=== PATIENT | female | born 1965 | race Caucasian/White ===

== ENCOUNTER 2019-01-06 17:01 | Emergency (ER) | payer MEDICARE, OTHER ==
[~2019-01-06] VITALS: Ht 170.2 cm; Wt 146.1 kg
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
--- NOTE | 2019-01-06 17:24 | NUR ---
CONNOR LOPEZ AT BEDSIDE
[2019-01-06] MEDS ORDERED: IV NS 0.9% 500 ML BAG IV ONE ×2 (17:30→18:30)
[2019-01-06 17:38] LABS: BASOPHILS % (AUTO) 0.3 % (0.0-2.0); EOSINOPHILS % (AUTO) 0.6 % (0.0-6.0); HEMATOCRIT 39 % (33-45); HEMOGLOBIN 13.2 g/dL (11.5-14.8); LYMPHOCYTES # (AUTO) 1.6 /CMM (0.8-4.8); LYMPHOCYTES % (AUTO) 12.8 % (20.0-44.0); MEAN CORPUSCULAR HGB CONC 34 g/dl (31.0-36.0); MEAN CORPUSCULAR VOLUME 88 fL (82-100); MONOCYTES # (AUTO) 0.8 /CMM (0.1-1.30); MONOCYTES % (AUTO) 6.6 % (2.0-12.0); NEUTROPHILS # (AUTO) 9.9 /CMM (1.8-8.9); NEUTROPHILS % (AUTO) 79.7 % (43.0-81.0); PLATELET COUNT (AUTO) 348 /CMM (150-450); RED BLOOD CELL COUNT(AUTO) 4.47 MIL/uL (4.0-5.2); WHITE BLOOD COUNT (AUTO) 12.5 K/uL (4.3-11.0)
--- NOTE | 2019-01-06 17:51 | NUR ---
WHEELED OUT VIA [facility] FOR CT SCAN
[2019-01-06 17:56] LABS: ALBUMIN 3.2 g/dL (3.4-5.0); BILIRUBIN,TOTAL 0.2 mg/dL (0.2-1.0); CALCIUM, SERUM 9.5 mg/dL (8.5-10.1); TOTAL PROTEIN, SERUM 7.4 g/dL (6.4-8.2)
[2019-01-06] MEDS ORDERED: hydrALAZINE HCL IV 20 MG VIAL ONE (18:18)
[2019-01-06] MEDS ORDERED: hydrALAZINE HCL IV 20 MG VIAL IV ONE (18:30)
[2019-01-06] MEDS ORDERED: MORPHINE SULFATE INJ 4 MG/ML DISP.SYRIN ONE (18:44)
[2019-01-06] MEDS ORDERED: ONDANSETRON HCL/PF 4 MG/2 ML VIAL ONE (18:44)
[2019-01-06] MEDS ORDERED: MAG HYDROX/AL HYDROX/SIMETH 30 ML UDC ONE (18:54)
[2019-01-06] MEDS ORDERED: LORAZEPAM INJ 2 MG/ML VIAL ONE (18:55)
[2019-01-06] MEDS ORDERED: MAG HYDROX/AL HYDROX/SIMETH 30 ML UDC PO ONE (19:00)
[2019-01-06] MEDS ORDERED: LORAZEPAM INJ 2 MG/ML VIAL IV ONE (19:00)
[2019-01-06] MEDS ORDERED: ONDANSETRON HCL/PF 4 MG/2 ML VIAL IV ONE (19:00)
[2019-01-06] MEDS ORDERED: MORPHINE SULFATE INJ 2 MG/ML DISP.SYRIN IV ONE (19:00)
[2019-01-06] MEDS ORDERED: OMEPRAZOLE 20 MG CAPSULE.DR PO ONE (19:00)
--- NOTE | 2019-01-06 19:00 | NUR ---
WHEELED OUT VIA [facility] FOR CT SCAN OF LUMBAR SPINE
--- NOTE | 2019-01-06 19:33 | NUR ---
REPORT GIVEN TO ZA ROMAN FOR [facility]
--- NOTE | 2019-01-06 19:48 | NUR ---
PT WAS ASSISTED TO THE BATHROOM VIA W/C
[2019-01-06] MEDS ORDERED: HYDROCODONE/APAP 10/325MG 1 EA TABLET ONE (22:24)
--- NOTE | 2019-01-06 23:07 | NUR ---
Patient discharged to home in stable condition. Written and verbal after care instructions given. Patient verbalizes understanding of instruction. Pt ambulated to the bathroom per her request with an steady gait. pt was assisted to the car w/ a w/c. iv line was d/c'd w/ no compliactions prior to d/c
[2019-01-06 23:10] VITALS: BP 146/79
[2019-01-06] MEDS ORDERED: HYDROCODONE/APAP 10/325MG 1 EA TABLET PO ONE (23:30)
== END 2019-01-06 23:10 | disposition home or self-care (01) ==
LOC: ER 17:10
DX: M25.551 Pain in right hip (principal); M54.5 Low back pain; E87.1 Hypo-osmolality and hyponatremia; I10 Essential (primary) hypertension; J45.909 Unspecified asthma, uncomplicated; E11.9 Type 2 diabetes mellitus without complications; F41.9 Anxiety disorder, unspecified; W01.0XXA Fall on same level from slipping, tripping and stumbling without subsequent striking against object, initial encounter; Y93.89 Activity, other specified; Y92.89 Other specified places as the place of occurrence of the external cause; Y99.8 Other external cause status
CPT/HCPCS: 36415; 70450; 72100; 72131; 73502; 80048; 80076; 85025; 93005; 96374; 96375; 99284; J0360; J2060; J2270; J2405; J7040 ×2